=== PATIENT | female | born 1985 | race Caucasian/White ===

== ENCOUNTER 2023-11-21 14:34 | Day surgery (SDC) | payer OTHER ==
[2023-11-21 15:03] VITALS: BMI 34.2
== END 2023-11-21 17:06 | disposition home or self-care (01) ==
LOC: CSHLD/OP 14:34
PROVIDERS: ATTEND Student in an Organized Health Care Education/Training Program
DX: O99.891 Other specified diseases and conditions complicating pregnancy (principal); R23.2 Flushing; R03.0 Elevated blood-pressure reading, without diagnosis of hypertension; O00.01 Abdominal pregnancy with intrauterine pregnancy; O34.211 Maternal care for low transverse scar from previous cesarean delivery; O09.523 Supervision of elderly multigravida, third trimester; Z3A.35 35 weeks gestation of pregnancy; Z79.82 Long term (current) use of aspirin; Z79.899 Other long term (current) drug therapy
CPT/HCPCS: 80053; 81001; 82570; 84156; 85025; 87086

== ENCOUNTER 2023-11-29 16:11 | Inpatient (IN) | payer OTHER ==
[2023-11-29 16:41] VITALS: BMI 34.5
[2023-11-29] MEDS ORDERED: hydrALAZINE 20 MG/ML VIAL SLOW IVP PRN ×2 (16:58→21:53)
[2023-11-29 17:36] LABS: Creatinine, Urine 78.94 mg/dL (47-110)
[2023-11-29 18:08] LABS: ALT (SGPT) 21 U/L (8-55); AST (SGOT) 24 U/L (5-34); Albumin 2.9 g/dL (3.5-5.0); Alkaline Phosphatase 117 U/L (40-110); Anion Gap 11 mmol/L (10-20); BUN (Urea Nitrogen) 10 mg/dL (7.0-18.7); Bilirubin, Total 0.3 mg/dL (0.2-1.2); Calc. Creatinine Clearance 127 mL/min (70-130); Calcium 9.1 mg/dL (7.8-10.44); Carbon Dioxide 18 mmol/L (22-29); Chloride 111 mmol/L (98-107); Estimated GFR 95; Globulin 3.9 g/dL (2.4-3.5); Glucose 97 mg/dL (70-105); Potassium 3.2 mmol/L (3.5-5.1); Protein, Total 6.8 g/dL (6.0-8.3); Sodium 137 mmol/L (136-145)
[2023-11-29 18:27] LABS: #Basophils 0.07 10x3/uL (0.0-0.2); #Monocytes 0.82 10x3/uL (0.0-1.1); #Neutrophils 11.11 10x3/uL (1.5-8.4); %Basophils 0.5 % (0.0-2.0); %Eosinophils 0.7 % (0.0-6.0); %Monocytes 5.9 % (0.0-10.0); %Neutrophils 80.7 % (40.0-75.0); Hemoglobin 13.8 g/dL (12.0-15.5); Mean Corpuscular HGB CONC 37.3 g/dL (32.0-36.0); Mean Corpuscular Hemoglobin 33.6 pg (27.0-33.0); Mean Platelet Volume 11.9 fL (7.4-10.4); Platelet Count 196 10x3/uL (150-450); RBC Distribution Width 13.7 % (11.5-14.5); Red Blood Cell (RBC) Count 4.11 10x6/uL (3.90-5.03); White Blood Cell (WBC) Count 13.8 10x3/uL (3.5-10.5)
[2023-11-29] MEDS ORDERED: Ondansetron ODT 4 MG TAB PO PRN (18:28)
[2023-11-29] MEDS ORDERED: Promethazine HCl 25 MG/ML VIAL IM PRN (21:53)
[2023-11-29] MEDS ORDERED: Misoprostol 200 MCG TAB PR PRN (21:53)
[2023-11-29] MEDS ORDERED: Acetaminophen 500 MG TAB PO PRN (21:53)
[2023-11-29] MEDS ORDERED: Methylergonovine 0.2 MG/ML VIAL IM PRN (21:53)
[2023-11-29] MEDS ORDERED: Diphenoxylate HCl/Atropine Tablet PO PRN (21:53)
[2023-11-29] MEDS ORDERED: Bicitra 30 ML UDCUP PO PRN (21:53)
[2023-11-29] MEDS ORDERED: Ondansetron PF 4 MG/2 ML Vial IVP PRN (21:53)
[2023-11-29] MEDS ORDERED: Carboprost 250 MCG/ML AMP IM PRN (21:53)
[2023-11-29] MEDS ORDERED: Tranexamic Acid 1,000 MG/10 ML VIAL IVP PRN (21:53)
[2023-11-29] MEDS ORDERED: Famotidine/PF 20 mg/2ml Vial SLOW IVP PRN (21:53)
[2023-11-29] MEDS ORDERED: Lactated Ringer's 1,000 ML IV SCH (22:00)
[2023-11-29] MEDS ORDERED: Oxytocin 30 units/NS 500 ML 500 ML IV SCH (22:00)
[2023-11-30 02:45] LABS: HBsAg Index 0.18 S/CO (0-0.99); Hep B Surf Ag - L&D Non-Reactive S/CO (NonReactive); Syphilis Antibody Nonreactive (Nonreactive); Syphilis Antibody Index 0.04 S/CO (<1.00 Non-Reactive)
[2023-11-30] MEDS ORDERED: Promethazine HCl 25 MG/ML VIAL IM PRN (07:06)
[2023-11-30] MEDS ORDERED: Naloxone HCl 0.4 mg/ml Vial IV PRN (07:06)
[2023-11-30] MEDS ORDERED: diphenhydrAMINE 50 MG/ML VIAL IVP PRN (07:06)
[2023-11-30] MEDS ORDERED: HYDROmorphone 0.5 MG/0.5 ML SYRINGE SLOW IVP PRN (07:06)
[2023-11-30] MEDS ORDERED: Naloxone HCl 0.4 mg/ml Vial IVP PRN ×2 (07:06)
[2023-11-30] MEDS ORDERED: Ondansetron PF 4 MG/2 ML Vial IVP PRN ×2 (07:06)
[2023-11-30] MEDS ORDERED: Moisturizing Cream (Eucerin) 113 GM JAR TOP PRN (07:06)
[2023-11-30] MEDS ORDERED: Meperidine HCl/PF 25 MG (1 mL) VIAL SLOW IVP PRN (07:06)
[2023-11-30] MEDS ORDERED: fentaNYL 50 mcg/mL 1 mL Vial SLOW IVP PRN (07:06)
[2023-11-30] MEDS ORDERED: Ketorolac Tromethamine 30 MG (1 mL) VIAL IVP SCH (07:15)
[2023-11-30] MEDS ORDERED: Communication Order-Pharmacy FS SCH (07:15)
[2023-11-30] MEDS: fentaNYL 50 mcg/mL 1 mL Vial ONE (12:08)
[2023-11-30] MEDS: CEFAZOLIN 2 GM VIAL ONE (12:08)
[2023-11-30] MEDS: Morphine PF 10 MG/10 ML VIAL ONE (12:08)
[2023-11-30] MEDS: Boostrix 0.5 ML (Tdap) VIAL (>/=7 yrs of age) IM ONE (12:09)
[2023-11-30] MEDS: Ondansetron PF 4 MG/2 ML Vial ONE (12:09)
[2023-11-30] MEDS: PHENYLEPHRINE-NS 100 MCG/ML 10 ML SYRINGE ONE (12:09)
[2023-11-30] MEDS: ePHEDrine Sulfate 50 MG/10 ML VIAL ONE (12:09)
[2023-11-30] MEDS: Dexamethasone 4 mg/ml Vial ONE (12:09)
[2023-11-30] MEDS: Oxytocin 10 UNITS/ML VIAL ONE ×2 (12:09)
[2023-11-30] MEDS: Acetaminophen 325 MG TAB PO SCH (12:20)
[2023-11-30] MEDS: Ketorolac Tromethamine 30 MG (1 mL) VIAL IVP PRN (15:09)
[2023-11-30] MEDS: Potassium Chloride 20 MEQ TAB PO SCH (21:26)
[2023-11-30] MEDS: Docusate 100 MG CAP PO SCH (21:26)
[2023-12-01 03:57] LABS: Hematocrit 32.7 % (34.9-44.5); Mean Corpuscular HGB CONC 36.7 g/dL (32.0-36.0); Mean Corpuscular Hemoglobin 33.6 pg (27.0-33.0); Mean Corpuscular Volume 91.6 fL (81.6-98.3); Mean Platelet Volume 11.9 fL (7.4-10.4); Platelet Count 228 10x3/uL (150-450); RBC Distribution Width 13.4 % (11.5-14.5); Red Blood Cell (RBC) Count 3.57 10x6/uL (3.90-5.03); White Blood Cell (WBC) Count 23.2 10x3/uL (3.5-10.5)
[2023-12-01] MEDS: Ferrous Sulfate 325 MG TAB PO SCH (07:36)
[2023-12-01] MEDS: Enoxaparin 40 MG (0.4 mL) SYRINGE SC SCH (09:12)
[2023-12-01] MEDS ORDERED: HYDROcodone/Acetaminophen 5/325 mg Tablet PO PRN (09:14)
[2023-12-01] MEDS: Ibuprofen 800 MG TAB PO SCH (21:21)
[2023-12-02] MEDS ORDERED: Ibuprofen 800 MG TAB PO SCH (06:00)
[2023-12-02] MEDS: HYDROcodone/Acetaminophen 10/325 mg Tablet PO PRN (07:57)
[2023-12-03 03:44] VITALS: TEMP 97.6
[2023-12-03 08:59] VITALS: BP 142/79
[2023-12-03 09:25] LABS: #Basophils 0.14 10x3/uL (0.0-0.2); #Eosinphils 0.38 10x3/uL (0.0-0.5); #Monocytes 0.75 10x3/uL (0.0-1.1); #Neutrophils 8.63 10x3/uL (1.5-8.4); %Basophils 1.2 % (0.0-2.0); %Eosinophils 3.1 % (0.0-6.0); %Lymphocytes 15.5 % (18.0-47.0); %Monocytes 6.2 % (0.0-10.0); %Neutrophils 71.3 % (40.0-75.0); Hematocrit 31.1 % (34.9-44.5); Hemoglobin 11.3 g/dL (12.0-15.5); Mean Corpuscular HGB CONC 36.3 g/dL (32.0-36.0); Mean Corpuscular Hemoglobin 33.9 pg (27.0-33.0); Mean Corpuscular Volume 93.4 fL (81.6-98.3); Mean Platelet Volume 11.4 fL (7.4-10.4); Platelet Count 223 10x3/uL (150-450); RBC Distribution Width 13.9 % (11.5-14.5); Red Blood Cell (RBC) Count 3.33 10x6/uL (3.90-5.03); White Blood Cell (WBC) Count 12.1 10x3/uL (3.5-10.5)
[2023-12-03 09:43] LABS: ALT (SGPT) 21 U/L (8-55); AST (SGOT) 22 U/L (5-34); Albumin 2.7 g/dL (3.5-5.0); Alkaline Phosphatase 89 U/L (40-110); Anion Gap 14 mmol/L (10-20); BUN (Urea Nitrogen) 15 mg/dL (7.0-18.7); Bilirubin, Total 0.3 mg/dL (0.2-1.2); Calc. Creatinine Clearance 120 mL/min (70-130); Calcium 9.5 mg/dL (7.8-10.44); Carbon Dioxide 23 mmol/L (22-29); Chloride 107 mmol/L (98-107); Estimated GFR 89; Globulin 3.6 g/dL (2.4-3.5); Glucose 74 mg/dL (70-105); Potassium 4.7 mmol/L (3.5-5.1); Protein, Total 6.3 g/dL (6.0-8.3); Sodium 139 mmol/L (136-145)
[2023-12-03] MEDS: Polyethylene Glycol 3350 17 GM Packet PO SCH (10:56)
== END 2023-12-03 13:25 | disposition home or self-care (01) | DRG 788 ==
LOC: CSHLD/OP 16:11 → CSHLD 21:53 → CSHPP 11-30 11:35
PROVIDERS: ADMIT Family Medicine; ATTEND Family Medicine
PROC: 10D00Z1 Extraction of Products of Conception, Low, Open Approach (ICD-10-PCS; principal; 2023-11-30)
DX: O13.4 Gestational [pregnancy-induced] hypertension without significant proteinuria, complicating childbirth (principal); O34.211 Maternal care for low transverse scar from previous cesarean delivery; Z3A.37 37 weeks gestation of pregnancy; Z37.0 Single live birth; Z79.82 Long term (current) use of aspirin; O34.13 Maternal care for benign tumor of corpus uteri, third trimester; D25.9 Leiomyoma of uterus, unspecified
CPT/HCPCS: 36415; 51702; 80053; 82570; 84156; 85025; 85027; 86780; 86850; 86900; 86901; 87340; 99285; J1100; J1650; J1885; J2274; J2405; J2590; J3010